=== PATIENT | male | born 1995 ===

== ENCOUNTER 2020-10-17 20:32 | Emergency (ER) | payer OTHER ==
[2020-10-17 20:50] VITALS: BP 137/74; PULSE 92; TEMP 98.7; BMI 20.4
[2020-10-17 21:37] LABS: ALBUMIN 5.1 g/dl (3.4-5.0); BILIRUBIN,TOTAL 0.8 mg/dl (0.2-1); CALCIUM 9.4 mg/dl (8.5-10); CREATININE 1.1 mg/dl (0.55-1.3); PHOSPHOROUS 3.3 mg/dl (2.5-4.9); TOT PROT 8.1 g/dl (6.4-8.2)
[2020-10-17 21:39] LABS: BASO % 1.3 % (0-2.0); EOS % 4.1 % (0-4.5); HEMATOCRIT 43.3 % (35.4-49); HEMOGLOBIN 15.1 GM/dl (11.7-16.9); LYMPH % 22.1 % (8-40); MCH 29.2 pg (25.7-33.7); MEAN CELL VOLUME 83.4 fl (80-96); MEAN PLT VOLUME 9.2 fl (7.5-11.1); MONO % 7.5 % (3.8-10.2); PLATELET COUNT 195 K/MM3 (134-434); WHITE BLOOD COUNT 7.6 K/mm3 (4.0-10.8)
[2020-10-17 23:45] LABS: HIV INTERPRETATION NEGATIVE (NEGATIVE)
== END 2020-10-17 21:36 | disposition home or self-care (01) ==
LOC: FER 20:32
DX: Z77.21 Contact with and (suspected) exposure to potentially hazardous body fluids (principal)
CPT/HCPCS: 36415; 80053; 82465; 82977; 83615; 84100; 84478; 84550; 85025; 86317; 86704; 86706; 86803; 87340; 87389; 99281-25

== ENCOUNTER 2021-03-08 03:14 | Emergency (ER) | payer OTHER ==
[2021-03-08 03:44] VITALS: BP 116/76; PULSE 78; TEMP 98.2; BMI 21.1
== END 2021-03-08 03:48 | disposition home or self-care (01) ==
LOC: FER 03:14
DX: Z77.128 Contact with and (suspected) exposure to other hazards in the physical environment (principal)
CPT/HCPCS: 99282-25

== ENCOUNTER 2023-03-15 19:02 | Emergency (ER) | payer OTHER ==
[2023-03-15 19:19] VITALS: BP 110/72; PULSE 81; RESP 18; TEMP 98.7; BMI 22.4
[2023-03-15] MEDS ORDERED: DIPHTH,PERTUSS(ACELL),TET 0.5 ML DISP.SYRIN IM ONE ×2 (19:19→19:29)
== END 2023-03-15 19:33 | disposition home or self-care (01) ==
LOC: FER 19:02
DX: S60.414A Abrasion of right ring finger, initial encounter (principal); W50.4XXA Accidental scratch by another person, initial encounter; Y35.93XA Legal intervention, means unspecified, suspect injured, initial encounter
CPT/HCPCS: 90715; 99282-25